=== PATIENT | female | born 1940 | race Caucasian/White ===

== ENCOUNTER 2018-10-19 13:05 | Outpatient (CLI) | payer MEDICARE, BC ==
--- NOTE | 2018-10-19 14:15 | RAD ---
2 VIEWS CHEST: Date: 10/19/18 COMPARISON: None. HISTORY: Dyspnea. FINDINGS: Two views of the chest show a normal sized cardiomediastinal silhouette. The patient is status post C ABG. There is no evidence of consolidation, mass, or pleural effusion. IMPRESSION: No evidence of acute cardiopulmonary disease. POS: [facility]
== END 2018-10-19 13:06 | disposition home or self-care (01) ==
LOC: RAD 13:05
PROVIDERS: ATTEND Internal Medicine
DX: R06.00 Dyspnea, unspecified (principal)
CPT/HCPCS: 71046

== ENCOUNTER 2018-11-06 19:30 | Outpatient (CLI) | payer MEDICARE, BC | END 2018-11-06 19:31 | disposition home or self-care (01) | LOC: SLEEPLAB 19:30 | PROVIDERS: ATTEND Internal Medicine | DX: G47.33 Obstructive sleep apnea (adult) (pediatric) (principal); R53.83 Other fatigue; R51 Headache; K21.9 Gastro-esophageal reflux disease without esophagitis; R35.1 Nocturia; R06.83 Snoring; G47.10 Hypersomnia, unspecified; G47.00 Insomnia, unspecified; E66.9 Obesity, unspecified; Z68.29 Body mass index [BMI] 29.0-29.9, adult | CPT/HCPCS: 95810 ==

== ENCOUNTER 2018-11-30 14:00 | Outpatient (CLI) | payer MEDICARE, BC | END 2018-11-30 14:01 | disposition home or self-care (01) | LOC: CP 14:00 | PROVIDERS: ATTEND Internal Medicine | DX: R06.00 Dyspnea, unspecified (principal) | CPT/HCPCS: 94060; 94727; 94729 ==

== ENCOUNTER 2019-03-09 08:32 | Outpatient (CLI) | payer MEDICARE, BC ==
--- NOTE | 2019-03-09 09:40 | RAD ---
EXAM: Chest 2 views: HISTORY: Preoperative radiograph COMPARISON: None. FINDINGS: There is a normal-sized cardiomediastinal silhouette. The patient is status post CABG. There is no evidence of consolidation, mass, or pleural effusion. The bones are unremarkable. IMPRESSION: No evidence of acute cardiopulmonary disease
[2019-03-09 10:24] LABS: #Basophils 0.1 thou/uL (0.0-0.2); #Eosinphils 0.2 thou/uL (0.0-0.7); #Monocytes 0.6 thou/uL (0.11-0.59); #Neutrophils 5.8 thou/uL (1.40-6.50); %Eosinophils 2.1 % (0.0-10.0); %Lymphocytes 30.9 % (21.0-51.0); Hemoglobin 13.3 g/dL (12.0-16.0); Mean Corpuscular HGB CONC 31.7 g/dL (32.0-36.0); Mean Corpuscular Hemoglobin 30.8 pg (27.0-31.0); Mean Corpuscular Volume 97.2 fL (78.0-98.0); Mean Platelet Volume 8.3 fL (7.4-10.4); Platelet Count 200 thou/uL (130-400); RBC Distribution Width 12.4 % (11.5-14.5); Red Blood Cell (RBC) Count 4.32 mill/uL (4.20-5.40); White Blood Cell (WBC) Count 9.7 thou/uL (4.8-10.8)
[2019-03-09 10:31] LABS: Bacteria/HPF None Seen HPF (None Seen); Bilirubin Negative (Negative); Blood, Urine Negative (Negative); Clarity Clear (Clear); Glucose, Urine (Dipstick) Normal (Negative); Leukocyte Negative Leu/uL (Negative); Nitrite Negative (Negative); Protein, Urine (Dipstick) Negative (Neg-Trace); RBC/HPF 0-3 HPF (0-3); Squamous Epithelial 0-3 HPF (0-3); Urobilinogen Normal mg/dL (Less than 2); WBC/HPF 0-3 HPF (0-3)
[2019-03-09 10:47] LABS: Anion Gap 14 mmol/L (10-20); BUN (Urea Nitrogen) 42 mg/dL (9.8-20.1); Calc. Creatinine Clearance 0 mL/min (70-130); Calcium 10.3 mg/dL (7.8-10.44); Carbon Dioxide 25 mmol/L (23-31); Chloride 104 mmol/L (98-107); Estimated GFR-MDRD 52; Glucose 94 mg/dL (83-110); Potassium 4.5 mmol/L (3.5-5.1); Sodium 138 mmol/L (136-145)
== END 2019-03-09 08:33 | disposition home or self-care (01) ==
LOC: LABBT 08:32
PROVIDERS: ATTEND Orthopaedic Surgery
DX: Z01.818 Encounter for other preprocedural examination (principal); M17.11 Unilateral primary osteoarthritis, right knee
CPT/HCPCS: 71046; 80048; 81001; 85025; 85610; 87081; 93005; 93010

== ENCOUNTER 2019-03-27 06:58 | Inpatient (IN) | payer MEDICARE, BC ==
[2019-03-27] MEDS ORDERED: Tranexamic Acid 1,000 MG/10 ML VIAL ONE ×2 (07:28→12:59)
[2019-03-27] MEDS ORDERED: ceFAZolin Sodium (SDC) 2 GM/100 ML BAG ONE (07:28)
[2019-03-27] MEDS ORDERED: Sodium Chloride 0.9% 100 ML ONE (07:28)
[2019-03-27] MEDS ORDERED: Vancomycin HCl 1.5 GM in Sodium Chloride 0.9% 250 ML 300 ML IVPB SCH ×2 (07:45→21:00)
[2019-03-27] MEDS ORDERED: Fentanyl 100 MCG/2 ML VIAL ONE ×4 (07:55→11:51)
[2019-03-27] MEDS ORDERED: Midazolam HCl 2 mg/2 ml Vial ONE (07:55)
[2019-03-27] MEDS ORDERED: Promethazine HCl 25 MG/ML VIAL SLOW IVP PRN (08:24)
[2019-03-27] MEDS ORDERED: Ondansetron HCl/PF 4 MG/2 ML Vial IVP PRN (08:24)
[2019-03-27] MEDS ORDERED: Promethazine HCl 25 MG/ML VIAL IM PRN ×3 (08:24→10:03)
[2019-03-27] MEDS ORDERED: HYDROcodone/Acetaminophen 10/325 mg Tablet PO PRN (08:39)
[2019-03-27] MEDS ORDERED: Fentanyl 100 MCG/2 ML VIAL SLOW IVP PRN (08:39)
[2019-03-27] MEDS ORDERED: Zolpidem Tartrate 5 MG TAB PO PRN ×2 (08:39→10:03)
[2019-03-27] MEDS ORDERED: traMADol HCl 50 MG TAB PO PRN ×2 (08:39)
[2019-03-27] MEDS ORDERED: Ropivacaine HCl/PF 250 ML in Premix Bag 1 BAG NERVE BLCK SCH (08:39)
[2019-03-27] MEDS ORDERED: Ondansetron PF 4 MG/2 ML Vial IVP PRN ×2 (08:39→10:03)
[2019-03-27] MEDS ORDERED: Bupivacaine PF 0.5% 30 ML VIAL ONE (09:27)
[2019-03-27] MEDS ORDERED: diphenhydrAMINE 25 MG CAP PO PRN (10:03)
[2019-03-27] MEDS ORDERED: Acetaminophen 325 MG TAB PO PRN (10:03)
[2019-03-27] MEDS ORDERED: Tranexamic Acid 1,000 MG in Sodium Chloride 0.9% 100 ML IVPB SCH (10:15)
[2019-03-27] MEDS ORDERED: Ketorolac Tromethamine 30 MG/ML VIAL IVP SCH (12:00)
[2019-03-27] MEDS ORDERED: Promethazine HCl 25 MG/ML VIAL ONE (13:08)
--- NOTE | 2019-03-27 13:09 | OP ---
DATE OF PROCEDURE: 03/27/2019 INFECTION CONTROL NURSE: Devante Collins PA-C PREOPERATIVE DIAGNOSIS: Right knee arthritis. POSTOPERATIVE DIAGNOSIS: Right knee arthritis. PROCEDURE PERFORMED: Right total knee arthroplasty using Zac pinless navigation. ESTIMATED BLOOD LOSS: Minimal. COMPLICATIONS: None. ANESTHESIA: She had general anesthetic. She also had a preoperative block. IMPLANTS: To the right knee, [employer] Triathlon total knee system, the femur was a size 3 cruciate-retaining femur. We used a size 3 primary tibial baseplate. We used a 3 x 9 mm X3 CS tibial bearing, and we used a 27 x 8 symmetric X3 patella. DISPOSITION: She went to recovery room in stable condition. INDICATIONS: This is a 78-year-old very active female, who has tried nonoperative treatment for knee arthritis and unfortunately has failed at this point. At this time, she wished to have her knee replaced. PROCEDURE IN DETAIL: After all appropriate consent forms were explained and signed, the patient was taken back to the operating room and at this time was given general anesthetic. Once the level of anesthesia was appropriate, a well-padded tourniquet was placed on the right leg, and the leg was then prepped and draped in standard surgical fashion. The limb was exsanguinated and tourniquet taken up to 300 mmHg. Midline incision was made with a 10 blade down through the skin and subcutaneous tissue. Bovie electrocautery was used to coagulate any brisk venous bleeding. A new blade was used to make a medial parapatellar arthrotomy. Small subperiosteal release was performed medially and excess fat pad was removed. The knee was flexed up to gain access to the femur. The femur was navigated and distal femoral resection was made. Epicondylar access was used to align our sizing jig and this was pinned in place. We sized our femur to be a size 3 cruciate-retaining femur. 4:1 cutting block was applied and pinned. Anterior and posterior chamfer cuts were then made. We navigated out our proximal tibia and made our proximal tibial resection. Spreaders were used to remove any posterior osteophytes off the back of the femur as well as remaining meniscal tissue. A long alignment jeremie was then used to achieve correct rotation of our tibial baseplate and a size 3 primary tibial baseplate was chosen. This was pinned in place. We trialed the polyethylene and a 3 x 9 mm X3 CS tibial bearing polyethylene gave us full extension and good stability throughout range of motion. Two towel clips and a saw were used to cut our patella. Three lug nuts were drilled and we used a 27 x 8 symmetric X3 patella was trialed which sat nicely in the trochlear groove. We then drilled our femur and punched our tibia. All components were removed. The knee was thoroughly irrigated and dried. Cement was mixed into the cement gun on the back table. Components were then placed. The knee was held out in full extension until the cement had dried. All excess bone cement was removed. Multiple #2 Vicryl stitches as well as a Quill were used to close our extensor mechanism. 0 Quill followed by a running Monoderm was then used to close the skin. Surgicel glue was then used on the skin. Once this had dried, soft tissue dressing was applied to the limb, tourniquet was let down , and the toes pinked up nicely. The patient was then awakened and taken to the recovery room in stable condition. All counts were correct at the end of the case. The patient did receive preoperative IV antibiotics. The patient was injected with Marcaine for postoperative pain relief. Job ID: [id number] [facility]
[2019-03-27] MEDS: Sodium Chloride 0.9% 1,000 ML IV SCH ×3 (13:47→21:14)
[2019-03-27 16:08] VITALS: BMI 28.4
[2019-03-27] MEDS: Ketorolac Tromethamine 30 MG/ML VIAL IVP SCH ×2 (16:30→21:25)
[2019-03-27] MEDS: HYDROcodone/Acetaminophen 10/325 mg Tablet PO PRN (17:31)
[2019-03-27] MEDS: CEFAZOLIN 2 GM, Admixture Fee 1 EACH in Sodium Chloride 0.9% 100 ML IVPB SCH (17:33)
--- NOTE | 2019-03-27 20:26 | CON ---
DATE OF CONSULTATION: REASON FOR CONSULTATION: Medical management. HISTORY OF PRESENT ILLNESS: Ms. Padilla is a 78-year-old woman, who has a history of hypertension and hyperlipidemia as well as coronary artery disease, status post CABG several years ago, who is status post right total knee arthroplasty done earlier today. The patient states she is feeling very well and has just finished mobilizing with the help of physical therapy. She has mild discomfort in her legs due to getting back into bed and states her pain is a 6/10 in severity, but once not moving, easily has settled. The patient states she feels very good otherwise. Denies having any complaints. She is very eager to the eat dinner because she is hungry. Denies having any nausea or vomiting. Denies any abdominal pain. Moving her bowels as normal and denies having any urinary symptoms. No fevers, chills, or sweats. No chest pain, palpitations, or shortness of breath. All other review of systems are negative. PAST MEDICAL HISTORY: 1. Hypertension. 2. Hyperlipidemia. 3. Coronary artery disease. 4. Previous CABG. 5. Arthritis. 6. GERD. PAST SURGICAL HISTORY: 1. CABG. 2. Status post right total knee arthroplasty. SOCIAL HISTORY: The patient denies any tobacco use, alcohol consumption, or illicit drug use. PHYSICAL EXAMINATION: GENERAL: The patient appears well developed, well nourished, is in no acute distress. VITAL SIGNS: Temperature 97.3, pulse 79, respirations 16, O2 saturation 98% on room air, blood pressure 144/77. HEENT: Normocephalic, atraumatic. Pupils are equal, round, and reactive to light. Sclerae without icterus. Oropharynx is clear. NECK: Supple. LUNGS: Clear to auscultation bilaterally. CARDIAC: Regular rate and rhythm without audible murmurs, rubs, or gallops. ABDOMEN: Soft, nontender, nondistended. Normoactive bowel sounds present. EXTREMITIES: Right knee notable for swelling with bandage in place associated with recent procedure and no erythema. NEUROLOGIC: Alert and oriented x3. SKIN: Without rash or jaundice. LABORATORY DATA: No laboratory data. IMPRESSION AND PLAN: Ms. Padilla is a very pleasant 78-year-old woman, who is status post right knee arthroplasty as mentioned above, which was done earlier today. The patient has a history of hypertension, hyperlipidemia, and coronary artery disease as well as arthritis. The patient has been referred for medical management. She was placed on IV antibiotics with cefazolin by Dr. Blanton. The patient is doing well at this present time without any significant discomfort and does have analgesics ordered including fentanyl and hydrocodone as well as Toradol as options for pain. She was referred for management of the following. 1. Hypertension. Her home medications have been restarted already. Her blood pressure is slightly elevated at 144/77, however, she has not received her blood pressure medicines today. Continue to monitor blood pressure. We will add on laboratory studies to assess current kidney function, given the multiple medications she is on. Last laboratory studies on file were done March 09, 2019, and at that time, her BUN was elevated at 42 with a creatinine of 1.02 and a GFR of 52. 2. Coronary artery disease. Home medications restarted including atorvastatin and aspirin. 3. Gastrointestinal prophylaxis. We will start her on famotidine 20 mg IV b.i.d. She does have a history of gastroesophageal reflux disease, though she is asymptomatic at present. 4. The patient's case was discussed with Dr. Mariee, who agrees with the plan of care as described above. Job ID: [id number]
[2019-03-27 21:08] LABS: #Basophils 0.1 thou/uL (0.0-0.2); #Eosinphils 0.1 thou/uL (0.0-0.7); #Lymphocytes 1.6 thou/uL (1.20-3.40); #Monocytes 0.6 thou/uL (0.11-0.59); #Neutrophils 6.4 thou/uL (1.40-6.50); %Basophils 0.7 % (0.0-1.0); %Eosinophils 0.8 % (0.0-10.0); %Lymphocytes 18.7 % (21.0-51.0); %Monocytes 6.7 % (0.0-10.0); %Neutrophils 73.1 % (42.0-75.0); Hemoglobin 11.4 g/dL (12.0-16.0); Mean Corpuscular Hemoglobin 31.5 pg (27.0-31.0); Mean Corpuscular Volume 95.6 fL (78.0-98.0); Mean Platelet Volume 7.8 fL (7.4-10.4); Platelet Count 175 thou/uL (130-400); RBC Distribution Width 12.7 % (11.5-14.5); White Blood Cell (WBC) Count 8.8 thou/uL (4.8-10.8)
[2019-03-27] MEDS: Aspirin 81 mg Enteric Coated Tablet PO SCH (21:27)
[2019-03-27] MEDS: Atorvastatin Calcium 40 MG TAB PO SCH (21:27)
[2019-03-27 21:30] LABS: Anion Gap 10 mmol/L (10-20); BUN (Urea Nitrogen) 34 mg/dL (9.8-20.1); Calc. Creatinine Clearance 61 mL/min (70-130); Calcium 9.1 mg/dL (7.8-10.44); Carbon Dioxide 25 mmol/L (23-31); Chloride 109 mmol/L (98-107); Estimated GFR-MDRD 56; Glucose 122 mg/dL (83-110); Potassium 4.2 mmol/L (3.5-5.1); Sodium 140 mmol/L (136-145)
[2019-03-28] MEDS: CEFAZOLIN 2 GM, Admixture Fee 1 EACH in Sodium Chloride 0.9% 100 ML IVPB SCH (00:51)
[2019-03-28] MEDS: Ketorolac Tromethamine 30 MG/ML VIAL IVP SCH ×4 (05:00→21:22)
[2019-03-28] MEDS: Sodium Chloride 0.9% 1,000 ML IV SCH ×2 (05:16→17:28)
[2019-03-28 07:15] LABS: Hemoglobin 11.1 g/dL (12.0-16.0); Mean Corpuscular HGB CONC 32.9 g/dL (32.0-36.0); Mean Corpuscular Hemoglobin 31.7 pg (27.0-31.0); Mean Corpuscular Volume 96.5 fL (78.0-98.0); Mean Platelet Volume 7.6 fL (7.4-10.4); Platelet Count 157 thou/uL (130-400); RBC Distribution Width 12.8 % (11.5-14.5); Red Blood Cell (RBC) Count 3.49 mill/uL (4.20-5.40); White Blood Cell (WBC) Count 7.3 thou/uL (4.8-10.8)
[2019-03-28 07:20] LABS: #Eosinphils 0.2 thou/uL (0.0-0.7); #Lymphocytes 1.4 thou/uL (1.20-3.40); #Monocytes 0.6 thou/uL (0.11-0.59); #Neutrophils 4.9 thou/uL (1.40-6.50); %Basophils 0.3 % (0.0-1.0); %Eosinophils 2.8 % (0.0-10.0); %Lymphocytes 19.3 % (21.0-51.0); %Monocytes 8.3 % (0.0-10.0); %Neutrophils 69.4 % (42.0-75.0); Mean Corpuscular HGB CONC 33.2 g/dL (32.0-36.0); Mean Corpuscular Volume 96.6 fL (78.0-98.0); Mean Platelet Volume 7.9 fL (7.4-10.4); Platelet Count 161 thou/uL (130-400); RBC Distribution Width 12.7 % (11.5-14.5); Red Blood Cell (RBC) Count 3.44 mill/uL (4.20-5.40); White Blood Cell (WBC) Count 7.1 thou/uL (4.8-10.8)
[2019-03-28 07:38] LABS: Anion Gap 10 mmol/L (10-20); BUN (Urea Nitrogen) 30 mg/dL (9.8-20.1); Calc. Creatinine Clearance 66 mL/min (70-130); Calcium 9.3 mg/dL (7.8-10.44); Carbon Dioxide 23 mmol/L (23-31); Chloride 109 mmol/L (98-107); Estimated GFR-MDRD 62; Glucose 92 mg/dL (83-110); Potassium 4.3 mmol/L (3.5-5.1); Sodium 138 mmol/L (136-145)
[2019-03-28] MEDS ORDERED: Non-Formulary Item 1 EACH (Potassium [Potassium] 99 MG) PO SCH (09:00)
[2019-03-28] MEDS ORDERED: Non-Formulary Item 1 EACH (Multivitamin [Multi-Vitamin Daily] 1 TABLET) PO SCH (09:00)
[2019-03-28] MEDS: Calcium Carbonate + Vit D 1 TAB PO SCH (09:02)
[2019-03-28] MEDS: Aspirin 81 mg Enteric Coated Tablet PO SCH ×2 (09:02→21:21)
[2019-03-28] MEDS: Magnesium Oxide 250 MG TAB PO SCH (09:02)
[2019-03-28] MEDS: Multivitamin W/ Minerals 1 TAB PO SCH (09:03)
[2019-03-28] MEDS: Senokot S 8.6-50 MG TAB PO SCH ×2 (09:03→21:21)
[2019-03-28] MEDS: Amlodipine 5 MG TAB PO SCH (09:03)
[2019-03-28] MEDS: Ferrous Gluconate 324 MG TAB PO SCH ×2 (09:03→17:29)
[2019-03-28] MEDS: Losartan 25 MG TAB PO SCH (09:04)
--- NOTE | 2019-03-28 17:37 | PDOC.HOSPP ---
- Subjective Encounter Date: 03/28/19 Encounter Time: 08:20 Subjective: Pt seen for followup re: hypertension. No complaints today. - Objective Vital Signs & Weight: Vital Signs (12 hours) Temp Pulse Resp BP BP Pulse Ox 03/28/19 15:48 97.7 F 83 16 134/72 98 03/28/19 09:03 72 138/60 03/28/19 08:00 94 L 03/28/19 07:48 98.2 F 72 16 138/60 94 L Weight Admit Weight 176 lb Weight 176 lb I&O: 03/27/19 03/28/19 03/29/19 06:59 06:59 06:59 Intake Total 1601.0 1800 Output Total 250 600 Balance 1351.0 1200 Result Diagrams: 03/28/19 06:58 03/28/19 06:58 Additional Labs: Labs and MARs reviewed by me ROS - Review of Systems Cardiovascular: denies: chest pain, palpitations, orthopnea, paroxysmal noc. dyspnea, edema, light headedness Gastrointestinal: denies: nausea, vomitting, abdominal pain, diarrhea, constipation, melena, hematochezia - Medication Medications: Active Medications Generic Name Dose Route Start Last Admin Trade Name Freq PRN Reason Stop Dose Admin Hydrocodone Bitart/Acetaminophen 1 tab 03/27/19 08:39 03/27/19 17:31 [place] 10/325 PO 1 tab Q4H PRN Administration Pain (1-3) Hydrocodone Bitart/Acetaminophen 2 tab 03/27/19 08:39 03/28/19 09:11 [place] 10/325 PO 2 tab Q4H PRN Administration PAIN (4-6) Amlodipine Besylate 5 mg 03/28/19 09:00 03/28/19 09:03 Norvasc PO 5 mg QAM ROMA Administration Aspirin 81 mg 03/27/19 21:00 03/28/19 09:02 Ecotrin PO 81 mg BID ROMA Administration Atorvastatin Calcium 40 mg 03/27/19 21:00 03/27/19 21:27 Lipitor PO 40 mg HS ROMA Administration Calcium/Vitamin D 1 tab 03/28/19 09:00 03/28/19 09:02 Caltrate 600 + Vit D PO 1 tab DAILY ROMA Administration Ferrous Gluconate 324 mg 03/28/19 08:00 03/28/19 17:29 Fergon PO 324 mg BID-WM ROMA Administration Ropivacaine 250 ml/ Device 250 mls @ 10 mls/hr 03/27/19 08:39 03/28/19 09:01 NERVE BLCK 250 mls INF ROMA Administration Sodium Chloride 1,000 mls @ 100 mls/hr 03/27/19 10:15 03/28/19 17:28 Normal Saline 0.9% IV Not Given .Q10H ROMA Iron/Minerals/Multivitamins 1 tab 03/28/19 09:00 03/28/19 09:03 Theragran M PO 1 tab DAILY ROMA Administration Ketorolac Tromethamine 15 mg 03/27/19 16:00 03/28/19 16:42 Toradol IVP 03/29/19 10:01 15 mg 0400,1000,1600,2200 ROMA Administration Losartan Potassium 25 mg 03/28/19 09:00 03/28/19 09:04 Cozaar PO 25 mg QAM ROMA Administration Magnesium Oxide 250 mg 03/28/19 09:00 03/28/19 09:02 Magnesium Oxide PO 250 mg DAILY ROMA Administration Pantoprazole Sodium 40 mg 03/28/19 09:00 03/28/19 09:02 Protonix PO 40 mg QAM ROMA Administration Senna/Docusate Sodium 2 tab 03/28/19 09:00 03/28/19 09:03 Senokot S PO 2 tab BID ROMA Administration - Exam NAD Eye: anicteric sclera ENT: normocephalic atraumatic, moist mucosa Neck: supple, no JVD Heart: RRR Respiratory: CTAB Gastrointestinal: soft, non-tender Skin: normal turgor Musculoskeletal: no muscle wasting Musculoskeletal - other findings: s/p right knee surgery Psychiatric: normal affect, normal behavior Hosp A/P (1) HTN (hypertension) Code(s): I10 - ESSENTIAL (PRIMARY) HYPERTENSION Status: Chronic (2) Dyslipidemia Code(s): E78.5 - HYPERLIPIDEMIA, UNSPECIFIED Status: Chronic (3) CAD (coronary artery disease) Code(s): I25.10 - ATHSCL HEART DISEASE OF [place] CORONARY ARTERY W/O ANG PCTRS Status: Chronic (4) GERD (gastroesophageal reflux disease) Code(s): K21.9 - GASTRO-ESOPHAGEAL REFLUX DISEASE WITHOUT ESOPHAGITIS Status: Chronic - Plan plan discussed w/ family, PT/OT, out of bed/ambulate BP controlled, continue Cozaar. CAD and GERD stable. Continue atorvastatin.
[2019-03-28] MEDS: Atorvastatin Calcium 40 MG TAB PO SCH (21:29)
[2019-03-29] MEDS: Sodium Chloride 0.9% 1,000 ML IV SCH ×2 (02:04→15:32)
[2019-03-29] MEDS: Ketorolac Tromethamine 30 MG/ML VIAL IVP SCH ×2 (05:00→10:19)
[2019-03-29 05:36] LABS: Hemoglobin 10.7 g/dL (12.0-16.0); Mean Corpuscular HGB CONC 32.2 g/dL (32.0-36.0); Mean Corpuscular Volume 96.3 fL (78.0-98.0); Mean Platelet Volume 8.3 fL (7.4-10.4); Platelet Count 159 thou/uL (130-400); RBC Distribution Width 12.8 % (11.5-14.5); Red Blood Cell (RBC) Count 3.46 mill/uL (4.20-5.40); White Blood Cell (WBC) Count 9.1 thou/uL (4.8-10.8)
[2019-03-29] MEDS: Calcium Carbonate + Vit D 1 TAB PO SCH (08:24)
[2019-03-29] MEDS: Losartan 25 MG TAB PO SCH (08:24)
[2019-03-29] MEDS: Amlodipine 5 MG TAB PO SCH (08:24)
[2019-03-29] MEDS: Senokot S 8.6-50 MG TAB PO SCH ×2 (08:24→19:20)
[2019-03-29] MEDS: Ferrous Gluconate 324 MG TAB PO SCH ×2 (08:24→18:40)
[2019-03-29] MEDS: Magnesium Oxide 250 MG TAB PO SCH (08:24)
[2019-03-29] MEDS: Aspirin 81 mg Enteric Coated Tablet PO SCH ×2 (08:25→19:20)
[2019-03-29] MEDS: Multivitamin W/ Minerals 1 TAB PO SCH (08:25)
[2019-03-29] MEDS: HYDROcodone/Acetaminophen 10/325 mg Tablet PO PRN ×2 (08:33→19:19)
--- NOTE | 2019-03-29 15:20 | PDOC.HOSPP ---
- Subjective Encounter Date: 03/29/19 Encounter Time: 08:40 Subjective: Pt seen for followup re: hypertension. Feels well, no complaints. - Objective Vital Signs & Weight: Vital Signs (12 hours) Temp Pulse Resp BP BP Pulse Ox 03/29/19 15:00 98.1 F 91 17 140/66 98 03/29/19 11:35 97.9 F 71 16 126/74 96 03/29/19 08:24 78 133/77 03/29/19 08:00 96 03/29/19 07:48 98.4 F 78 16 133/77 96 03/29/19 04:28 97.8 F 84 17 115/71 99 Weight Admit Weight 176 lb Weight 176 lb I&O: 03/28/19 03/29/19 03/30/19 06:59 06:59 06:59 Intake Total 1601.0 2661.0 Output Total 250 5300 Balance 1351.0 -2639.0 Result Diagrams: 03/29/19 04:31 03/28/19 06:58 Additional Labs: labs and MARs reviewed by me FARRAR - Review of Systems Cardiovascular: denies: chest pain, palpitations, orthopnea, paroxysmal noc. dyspnea, edema, light headedness Gastrointestinal: denies: nausea, vomitting, abdominal pain, diarrhea, constipation, melena, hematochezia - Medication Medications: Active Medications Generic Name Dose Route Start Last Admin Trade Name Freq PRN Reason Stop Dose Admin Hydrocodone Bitart/Acetaminophen 1 tab 03/27/19 08:39 03/29/19 08:33 [place] 10/325 PO 1 tab Q4H PRN Administration Pain (1-3) Hydrocodone Bitart/Acetaminophen 2 tab 03/27/19 08:39 03/28/19 09:11 [place] 10/325 PO 2 tab Q4H PRN Administration PAIN (4-6) Amlodipine Besylate 5 mg 03/28/19 09:00 03/29/19 08:24 Norvasc PO 5 mg QAM ROMA Administration Aspirin 81 mg 03/27/19 21:00 03/29/19 08:25 Ecotrin PO 81 mg BID ROMA Administration Atorvastatin Calcium 40 mg 03/27/19 21:00 03/28/19 21:29 Lipitor PO 40 mg HS ROMA Administration Calcium/Vitamin D 1 tab 03/28/19 09:00 03/29/19 08:24 Caltrate 600 + Vit D PO 1 tab DAILY ROMA Administration Ferrous Gluconate 324 mg 03/28/19 08:00 03/29/19 08:24 Fergon PO 324 mg BID-WM ROMA Administration Ropivacaine 250 ml/ Device 250 mls @ 10 mls/hr 03/27/19 08:39 03/28/19 09:01 NERVE BLCK 250 mls INF ROMA Administration Sodium Chloride 1,000 mls @ 100 mls/hr 03/27/19 10:15 03/29/19 02:04 Normal Saline 0.9% IV Not Given .Q10H ROMA Iron/Minerals/Multivitamins 1 tab 03/28/19 09:00 03/29/19 08:25 Theragran M PO 1 tab DAILY ROMA Administration Losartan Potassium 25 mg 03/28/19 09:00 03/29/19 08:24 Cozaar PO 25 mg QAM ROMA Administration Magnesium Oxide 250 mg 03/28/19 09:00 03/29/19 08:24 Magnesium Oxide PO 250 mg DAILY ROMA Administration Pantoprazole Sodium 40 mg 03/28/19 09:00 03/29/19 08:24 Protonix PO 40 mg QAM ROMA Administration Senna/Docusate Sodium 2 tab 03/28/19 09:00 03/29/19 08:24 Senokot S PO 2 tab BID ROMA Administration Sodium Chloride 10 ml 03/27/19 10:03 03/29/19 05:00 Flush - Normal Saline IVF 10 ml PRN PRN Administration Saline Flush - Exam NAD Eye: anicteric sclera ENT: normocephalic atraumatic Neck: supple Heart: RRR Respiratory: CTAB Gastrointestinal: soft Extremities: no cyanosis Extremeties - other findings: s/p l knee surgery Psychiatric: normal affect, normal behavior Hosp A/P (1) HTN (hypertension) Code(s): I10 - ESSENTIAL (PRIMARY) HYPERTENSION Status: Chronic (2) Dyslipidemia Code(s): E78.5 - HYPERLIPIDEMIA, UNSPECIFIED Status: Chronic (3) CAD (coronary artery disease) Code(s): I25.10 - ATHSCL HEART DISEASE OF [place] CORONARY ARTERY W/O ANG PCTRS Status: Chronic (4) GERD (gastroesophageal reflux disease) Code(s): K21.9 - GASTRO-ESOPHAGEAL REFLUX DISEASE WITHOUT ESOPHAGITIS Status: Chronic - Plan PT/OT, out of bed/ambulate BP controlled, on Cozaar. CAD stable. GERD stable. Continue atorvastatin for dyslipidemia.
[2019-03-29] MEDS: Atorvastatin Calcium 40 MG TAB PO SCH (19:19)
[2019-03-30] MEDS: Sodium Chloride 0.9% 1,000 ML IV SCH ×2 (00:37→08:41)
[2019-03-30 04:18] LABS: Hemoglobin 11.5 g/dL (12.0-16.0); Mean Corpuscular HGB CONC 33.1 g/dL (32.0-36.0); Mean Corpuscular Hemoglobin 31.8 pg (27.0-31.0); Mean Corpuscular Volume 96.1 fL (78.0-98.0); Platelet Count 167 thou/uL (130-400); RBC Distribution Width 12.8 % (11.5-14.5); Red Blood Cell (RBC) Count 3.61 mill/uL (4.20-5.40); White Blood Cell (WBC) Count 8.9 thou/uL (4.8-10.8)
[2019-03-30] MEDS ORDERED: Docusate 100 MG CAP PO PRN (08:00)
[2019-03-30] MEDS: Ferrous Gluconate 324 MG TAB PO SCH (08:37)
[2019-03-30] MEDS: Calcium Carbonate + Vit D 1 TAB PO SCH (08:38)
[2019-03-30] MEDS: Magnesium Oxide 250 MG TAB PO SCH (08:38)
[2019-03-30] MEDS: Losartan 25 MG TAB PO SCH (08:38)
[2019-03-30] MEDS: Multivitamin W/ Minerals 1 TAB PO SCH (08:38)
[2019-03-30] MEDS: Senokot S 8.6-50 MG TAB PO SCH (08:38)
[2019-03-30] MEDS: Aspirin 81 mg Enteric Coated Tablet PO SCH (08:39)
[2019-03-30] MEDS: Amlodipine 5 MG TAB PO SCH (08:39)
[2019-03-30] MEDS ORDERED: Bisacodyl 10 MG SUPP PR PRN (09:28)
[2019-03-30] MEDS ORDERED: Ondansetron ODT 4 MG TAB PO PRN (10:58)
[2019-03-30 12:43] VITALS: BP 148/73; TEMP 98.7
== END 2019-03-30 15:18 | DRG 470 ==
LOC: SDC 06:58 → SJJU 10:03
PROVIDERS: ADMIT Orthopaedic Surgery; ATTEND Orthopaedic Surgery
PROC: 0SRC0J9 Replacement of Right Knee Joint with Synthetic Substitute, Cemented, Open Approach (ICD-10-PCS; principal; 2019-03-27)
DX: M17.11 Unilateral primary osteoarthritis, right knee (principal); I10 Essential (primary) hypertension; E78.5 Hyperlipidemia, unspecified; I25.10 Atherosclerotic heart disease of native coronary artery without angina pectoris; I34.0 Nonrheumatic mitral (valve) insufficiency; K21.9 Gastro-esophageal reflux disease without esophagitis; Z95.1 Presence of aortocoronary bypass graft; Z79.899 Other long term (current) drug therapy
CPT/HCPCS: 36415; 80048; 85025; 85027; C1713; C1776; J0690; J1885; J2250; J2550; J2795; J3010; J3370; J3490; J7050; Q0162; S0020

== ENCOUNTER 2020-06-13 08:34 | Outpatient (CLI) | payer MEDICARE, BC ==
--- NOTE | 2020-06-13 08:47 | RAD ---
EXAM: Chest PA and lateral: HISTORY: Dyspnea. COMPARISON: 03/09/2019, 11/08/2019 FINDINGS: There are vascular rings and sternotomy wires. Heart: Normal cardiac silhouette Aorta: Unremarkable Pulmonary vessels: Normal Costophrenic angles: Costophrenic angles are clear. Lungs: No masses or consolidation. Chronic lung parenchymal changes. Pneumothorax: No pneumothorax Osseous structures: Previous right rotator cuff repair. IMPRESSION: No acute cardiopulmonary process.
== END 2020-06-13 08:35 | disposition home or self-care (01) ==
LOC: BICRAD 08:34
PROVIDERS: ATTEND Internal Medicine Critical Care Medicine
DX: R06.00 Dyspnea, unspecified (principal)
CPT/HCPCS: 71046

== ENCOUNTER 2020-07-05 08:37 | Outpatient (CLI) | payer MEDICARE, BC ==
--- NOTE | 2020-07-05 09:08 | RAD ---
EXAM: Lumbar spine 4 views including standing flexion and extension views HISTORY: Spondylolisthesis pain COMPARISON: 06/29/2016 FINDINGS: No evidence for acute fracture or dislocation or significant acute process. Dextroscoliosis of the lower lumbar spine and levoscoliosis of the upper lumbar lower thoracic spine. Stable anterolisthesis of L3 on L4 and L4-L5, grade 1 Multilevel disc osteophytosis and facet arthrosis. No evidence for a focal bone lesion. IMPRESSION: Stable appearing scoliosis with anterolisthesis of L3 on L4 L4 on L5 without abnormal translation bet ween flexion and extension.
--- NOTE | 2020-07-05 09:13 | RAD ---
EXAM: 2 views of the bilateral hips HISTORY: Bilateral hip pain COMPARISON: None FINDINGS: 2 views of the bilateral hips shows no evidence of acute fracture or dislocation. Mild join t space during seen in the right hip. Moderate to severe joint space narrowing is seen in the left hip. Subchondral cystic changes seen bilaterally. Surgical clips are seen in the left inguinal region . IMPRESSION: Bilateral hip osteoarthritis
== END 2020-07-05 08:38 | disposition home or self-care (01) ==
LOC: BICRAD 08:37
PROVIDERS: ATTEND Specialist
DX: M43.17 Spondylolisthesis, lumbosacral region (principal); M25.551 Pain in right hip; M25.552 Pain in left hip; M16.0 Bilateral primary osteoarthritis of hip; M41.9 Scoliosis, unspecified; M43.16 Spondylolisthesis, lumbar region
CPT/HCPCS: 72110; 73522

== ENCOUNTER 2021-12-10 13:15 | Outpatient (CLI) | payer MEDICARE, BC ==
[2021-12-11 12:17] LABS: SARS-CoV-2 PCR by NAA Not Detected (NotDetected)
== END 2021-12-10 13:16 | disposition home or self-care (01) ==
LOC: LABBT 13:15
PROVIDERS: ATTEND Surgery
DX: Z01.818 Encounter for other preprocedural examination (principal); R93.5 Abnormal findings on diagnostic imaging of other abdominal regions, including retroperitoneum; R94.5 Abnormal results of liver function studies; Z20.822 Contact with and (suspected) exposure to COVID-19
CPT/HCPCS: 93005; U0003; U0005; 93010

== ENCOUNTER 2021-12-15 09:15 | Day surgery (SDC) | payer MEDICARE, BC ==
[2021-12-11 12:25] VITALS: BMI 23.2
[2021-12-15] MEDS ORDERED: Lidocaine 1% w/Epinephrine 1:100K 20 ML VIAL ONE (10:56)
[2021-12-15] MEDS ORDERED: Bupivacaine 0.25% 10 ML VIAL ONE (10:56)
[2021-12-15] MEDS ORDERED: PROPOFOL 20 ML ONE (10:59)
[2021-12-15] MEDS ORDERED: ceFAZolin (BATCH) 2 GM/100 ML BAG ONE (11:03)
[2021-12-15] MEDS ORDERED: Lidocaine 1% PF 5 ML VIAL ONE (11:26)
[2021-12-15] MEDS ORDERED: PROPOFOL 200 MG/20 ML VIAL ONE (11:26)
== END 2021-12-15 13:00 | disposition home or self-care (01) ==
LOC: SDC 09:15
PROVIDERS: ATTEND Surgery
PROC: 0JH63WZ Insertion of Totally Implantable Vascular Access Device into Chest Subcutaneous Tissue and Fascia, Percutaneous Approach (ICD-10-PCS; principal; 2021-12-15)
PROC: 02HV33Z Insertion of Infusion Device into Superior Vena Cava, Percutaneous Approach (ICD-10-PCS; 2021-12-15)
DX: C25.9 Malignant neoplasm of pancreas, unspecified (principal); I10 Essential (primary) hypertension; K21.9 Gastro-esophageal reflux disease without esophagitis; I25.10 Atherosclerotic heart disease of native coronary artery without angina pectoris; M19.90 Unspecified osteoarthritis, unspecified site; E78.5 Hyperlipidemia, unspecified; Z79.01 Long term (current) use of anticoagulants; Z79.82 Long term (current) use of aspirin; Z79.84 Long term (current) use of oral hypoglycemic drugs; Z79.899 Other long term (current) drug therapy; Z88.5 Allergy status to narcotic agent; Z88.8 Allergy status to other drugs, medicaments and biological substances; Z95.1 Presence of aortocoronary bypass graft
CPT/HCPCS: 71045; C1788; J0690; J1642; J2704; S0020

== ENCOUNTER 2022-01-06 17:40 | Inpatient (IN) | payer MEDICARE, BC ==
[2022-01-06] MEDS ORDERED: hydrALAZINE 20 MG/ML VIAL SLOW IVP PRN (19:20)
[2022-01-06 19:21] VITALS: BMI 22.9
[2022-01-06] MEDS ORDERED: Dextrose 50% Abboject 50 ML SYRINGE SLOW IVP PRN (22:52)
[2022-01-06] MEDS ORDERED: Dextrose 5% in Water 1,000 ML IV PRN (22:52)
[2022-01-06] MEDS ORDERED: Ondansetron ODT 4 MG TAB PO PRN (22:52)
[2022-01-06] MEDS ORDERED: Acetaminophen 650 MG Suppository PR PRN (22:52)
[2022-01-06] MEDS ORDERED: HumaLOG 300 UNITS/3 ML VIAL SC PRN ×2 (22:52)
[2022-01-06] MEDS ORDERED: Sodium Chloride 0.9% 1,000 ML IV SCH (23:00)
[2022-01-06] MEDS ORDERED: Piperacillin/Tazobactam 3.375 GM in Sodium Chloride 0.9% 100 ML IVPB SCH ×2 (23:15→23:30)
[2022-01-06] MEDS ORDERED: Cefepime 2 GM in Sodium Chloride 0.9% 100 ML IVPB SCH (23:59)
[2022-01-07] MEDS: Sodium Chloride 0.9% 1,000 ML IV SCH ×3 (00:05→20:41)
[2022-01-07] MEDS: traZODone HCl 50 MG TAB PO PRN ×2 (01:17→20:45)
[2022-01-07] MEDS: Piperacillin/Tazobactam 3.375 GM in Sodium Chloride 0.9% 100 ML IVPB SCH ×3 (04:29→20:41)
[2022-01-07 05:58] LABS: Anion Gap 10 mmol/L (10-20); BUN (Urea Nitrogen) 15 mg/dL (9.8-20.1); Calc. Creatinine Clearance 66 mL/min (70-130); Calcium 8.1 mg/dL (7.8-10.44); Carbon Dioxide 22 mmol/L (23-31); Chloride 107 mmol/L (98-107); Glucose 134 mg/dL (83-110); Potassium 3.7 mmol/L (3.5-5.1); Sodium 135 mmol/L (136-145)
[2022-01-07 07:40] LABS: Hemoglobin 9.3 g/dL (12.0-16.0); Mean Corpuscular HGB CONC 32.3 g/dL (32.0-36.0); Mean Corpuscular Hemoglobin 30.8 pg (27.0-31.0); Mean Corpuscular Volume 95.5 fL (78.0-98.0); Mean Platelet Volume 7.1 fL (7.4-10.4); Platelet Count 139 thou/uL (130-400); RBC Distribution Width 11.8 % (11.5-14.5); Red Blood Cell (RBC) Count 3.02 mill/uL (4.20-5.40); White Blood Cell (WBC) Count 1.5 thou/uL (4.8-10.8)
[2022-01-07 08:59] LABS: Band 6 % (5-11); Lymphocytes 56 % (21-51); MDiff Complete? YES; Monocytes 4 % (0-10); Neutrophil 34 % (42-75); Platelet Morphology Comment Appears Adequate; Polychromasia SLIGHT = 2-3 cells (100X) (0-2/hpf)
[2022-01-07] MEDS: Acetaminophen 325 MG TAB PO PRN (08:59)
[2022-01-07] MEDS: Aspirin 81 mg Enteric Coated Tablet PO SCH (09:00)
[2022-01-07] MEDS ORDERED: Apixaban 5 MG TAB PO SCH (09:00)
[2022-01-07] MEDS ORDERED: Vancomycin 1 GM in Premix Bag 1 BAG IVPB SCH (15:00)
[2022-01-07] MEDS: Ondansetron PF 4 MG/2 ML Vial IVP PRN (20:45)
[2022-01-07] MEDS: HYDROcodone/Acetaminophen 5/325 mg Tablet PO PRN (20:55)
[2022-01-08] MEDS: Piperacillin/Tazobactam 3.375 GM in Sodium Chloride 0.9% 100 ML IVPB SCH ×3 (03:55→20:28)
[2022-01-08 06:17] LABS: Band 3 % (5-11); Hemoglobin 9.3 g/dL (12.0-16.0); Lymphocytes 63 % (21-51); MDiff Complete? YES; Mean Corpuscular HGB CONC 32.2 g/dL (32.0-36.0); Mean Platelet Volume 6.7 fL (7.4-10.4); Monocytes 5 % (0-10); Neutrophil 29 % (42-75); Platelet Count 128 thou/uL (130-400); RBC Distribution Width 11.8 % (11.5-14.5); Red Blood Cell (RBC) Count 3.01 mill/uL (4.20-5.40); White Blood Cell (WBC) Count 2.1 thou/uL (4.8-10.8)
[2022-01-08 06:37] LABS: ALT (SGPT) 26 U/L (8-55); AST (SGOT) 27 U/L (5-34); Albumin 2.5 g/dL (3.4-4.8); Alkaline Phosphatase 76 U/L (40-110); Anion Gap 10 mmol/L (10-20); BUN (Urea Nitrogen) 10 mg/dL (9.8-20.1); Bilirubin, Total 0.4 mg/dL (0.2-1.2); Calc. Creatinine Clearance 64 mL/min (70-130); Calcium 8.5 mg/dL (7.8-10.44); Carbon Dioxide 23 mmol/L (23-31); Chloride 109 mmol/L (98-107); Globulin 2.5 g/dL (2.4-3.5); Glucose 108 mg/dL (83-110); Magnesium 1.5 mg/dL (1.6-2.6); Potassium 3.7 mmol/L (3.5-5.1); Sodium 138 mmol/L (136-145)
[2022-01-08] MEDS: Ondansetron PF 4 MG/2 ML Vial IVP PRN (08:53)
[2022-01-08] MEDS: Aspirin 81 mg Enteric Coated Tablet PO SCH (08:54)
[2022-01-08] MEDS ORDERED: Magnesium Sulfate 2 GM in Sodium Chloride 0.9% 100 ML IVPB SCH (09:00)
[2022-01-08] MEDS: Sodium Chloride 0.9% 1,000 ML IV SCH ×3 (12:11→22:21)
[2022-01-08] MEDS: Acetaminophen 325 MG TAB PO PRN (13:18)
[2022-01-08 14:35] LABS: Vancomycin, Trough 5.4 ug/mL
[2022-01-08] MEDS: Vancomycin HCl 750 MG in Sodium Chloride 0.9% 250 ML 250 ML IVPB SCH (17:07)
[2022-01-08] MEDS: HYDROcodone/Acetaminophen 5/325 mg Tablet PO PRN (20:28)
[2022-01-09] MEDS: Vancomycin HCl 750 MG in Sodium Chloride 0.9% 250 ML 250 ML IVPB SCH (02:38)
[2022-01-09] MEDS: Piperacillin/Tazobactam 3.375 GM in Sodium Chloride 0.9% 100 ML IVPB SCH (04:14)
[2022-01-09 05:17] LABS: Hemoglobin 8.9 g/dL (12.0-16.0); Mean Corpuscular HGB CONC 32.8 g/dL (32.0-36.0); Mean Corpuscular Hemoglobin 31.3 pg (27.0-31.0); Mean Corpuscular Volume 95.4 fL (78.0-98.0); Platelet Count 124 thou/uL (130-400); RBC Distribution Width 11.8 % (11.5-14.5); Red Blood Cell (RBC) Count 2.84 mill/uL (4.20-5.40); White Blood Cell (WBC) Count 2.7 thou/uL (4.8-10.8)
[2022-01-09 05:18] LABS: Band 1 % (5-11); Eosinophils 2 % (0-10); Lymphocytes 51 % (21-51); MDiff Complete? YES; Monocytes 7 % (0-10); Neutrophil 39 % (42-75); Platelet Morphology Comment Appears Decreased; RBC Morphology Normal
[2022-01-09 08:06] VITALS: BP 118/72; TEMP 99.5
[2022-01-09] MEDS: Acetaminophen 325 MG TAB PO PRN (08:10)
[2022-01-09] MEDS: Aspirin 81 mg Enteric Coated Tablet PO SCH (08:10)
== END 2022-01-09 12:40 | disposition home or self-care (01) | DRG 872 ==
LOC: MSONC 17:40
PROVIDERS: ADMIT Internal Medicine; ATTEND Internal Medicine
DX: A41.9 Sepsis, unspecified organism (principal); C25.9 Malignant neoplasm of pancreas, unspecified; N39.0 Urinary tract infection, site not specified; D70.1 Agranulocytosis secondary to cancer chemotherapy; Z20.822 Contact with and (suspected) exposure to COVID-19; E10.9 Type 1 diabetes mellitus without complications; E78.5 Hyperlipidemia, unspecified; I10 Essential (primary) hypertension; D64.9 Anemia, unspecified; I25.10 Atherosclerotic heart disease of native coronary artery without angina pectoris; T45.1X5A Adverse effect of antineoplastic and immunosuppressive drugs, initial encounter; G89.29 Other chronic pain; R50.81 Fever presenting with conditions classified elsewhere; Z79.899 Other long term (current) drug therapy; Z79.84 Long term (current) use of oral hypoglycemic drugs; Z86.718 Personal history of other venous thrombosis and embolism; Z79.01 Long term (current) use of anticoagulants; Z86.711 Personal history of pulmonary embolism
CPT/HCPCS: 36415; 36416; 71045; 71275; 74177; 80048; 80053; 80202; 81003; 81015; 83605; 83690; 83735; 83880; 84484; 85025; 85060; 87040; 87086; 87804; 93005; J0692; J1642; J1815; J2270; J2405; J2543; J3370; J3475; J3490; J7050; Q9967; U0002

== ENCOUNTER 2022-01-31 19:37 | Inpatient (IN) | payer MEDICARE, BC ==
[~2022-01-31 19:37] MED LIST: ISOVUE-370 76%-LOCM 1 ML ONE
[2022-01-31 20:16] LABS: Mean Corpuscular HGB CONC 32.7 g/dL (32.0-36.0); Mean Corpuscular Hemoglobin 31.4 pg (27.0-31.0); Mean Corpuscular Volume 96.3 fL (78.0-98.0); Mean Platelet Volume 6.8 fL (7.4-10.4); Platelet Count 245 thou/uL (130-400); RBC Distribution Width 14.6 % (11.5-14.5); Red Blood Cell (RBC) Count 2.55 mill/uL (4.20-5.40)
[2022-01-31 20:31] LABS: Band 5 % (5-11); Burr Cells SLIGHT = 2-5 cells (100X) (0-1/hpf); Eosinophils 3 % (0-10); Lymphocytes 16 % (21-51); MDiff Complete? YES; Monocytes 14 % (0-10); Neutrophil 55 % (42-75); Ovalocytes SLIGHT = 2-5 cells (100X) (0-1/hpf); Platelet Morphology Comment Appears Adequate; Polychromasia SLIGHT = 2-3 cells (100X) (0-2/hpf); Reactive Lymphocytes 6 % (0-10)
[2022-01-31 20:41] LABS: ALT (SGPT) 218 U/L (8-55); AST (SGOT) 354 U/L (5-34); Albumin 2.6 g/dL (3.4-4.8); Alkaline Phosphatase 611 U/L (40-110); Anion Gap 15 mmol/L (10-20); BUN (Urea Nitrogen) 20 mg/dL (9.8-20.1); Bilirubin, Total 1.7 mg/dL (0.2-1.2); Calc. Creatinine Clearance 0 mL/min (70-130); Calcium 8.8 mg/dL (7.8-10.44); Carbon Dioxide 19 mmol/L (23-31); Chloride 104 mmol/L (98-107); Globulin 2.4 g/dL (2.4-3.5); Glucose 126 mg/dL (83-110); Lipase 7 U/L (8-78); Potassium 3.9 mmol/L (3.5-5.1); Sodium 134 mmol/L (136-145)
[2022-01-31 21:23] LABS: Bilirubin 1+ (Negative); Blood, Urine Trace (Negative); Clarity Turbid (Clear); Glucose, Urine (Dipstick) Normal (Negative); Ketone, Urine Negative (Negative); Leukocyte 500 Leu/uL (Negative); Nitrite Negative (Negative); Protein, Urine (Dipstick) 20 mg/dL (Neg-Trace); Squamous Epithelial 0-3 HPF (0-3)
[2022-01-31 21:24] LABS: Bacteria/HPF 4+ HPF (None Seen); WBC/HPF Greater than 50 HPF (0-3)
[2022-01-31] MEDS ORDERED: Cefepime 2 GM VIAL ONE (22:13)
[2022-01-31 22:31] LABS: SARS-CoV-2 NAA Rapid Test Not Detected (NotDetected)
[2022-01-31] MEDS ORDERED: Vancomycin 1 GM/200 ML BAG ONE (22:58)
[2022-01-31 23:45] LABS: Troponin I 0.011 ng/mL (< 0.028)
[2022-01-31] MEDS ORDERED: Ondansetron PF 4 MG/2 ML Vial IVP PRN (23:53)
[2022-02-01] MEDS ORDERED: hydrOXYzine 10 MG TAB PO PRN ×2 (01:04→20:36)
[2022-02-01] MEDS ORDERED: Morphine 2 MG/ML VIAL SLOW IVP PRN ×2 (01:04→01:05)
[2022-02-01] MEDS ORDERED: Senokot S 8.6-50 MG TAB PO PRN (01:06)
[2022-02-01] MEDS ORDERED: HYDROcodone/Acetaminophen 5/325 mg Tablet PO PRN (01:20)
[2022-02-01 01:23] VITALS: BMI 23.2
[2022-02-01] MEDS ORDERED: Nitroglycerin 0.4 MG TAB (25 Tab Bottle) SL PRN (01:27)
[2022-02-01] MEDS ORDERED: Meclizine HCl 25 MG TAB PO PRN (01:27)
[2022-02-01] MEDS ORDERED: Prochlorperazine Maleate 5 MG TAB PO PRN (01:28)
[2022-02-01] MEDS ORDERED: Piperacillin/Tazobactam 3.375 GM in Sodium Chloride 0.9% 100 ML IVPB SCH (01:30)
[2022-02-01] MEDS ORDERED: Pantoprazole 40 MG VIAL IVP SCH (01:30)
[2022-02-01] MEDS ORDERED: hydrALAZINE 20 MG/ML VIAL SLOW IVP PRN (01:31)
[2022-02-01] MEDS ORDERED: Benzonatate 100 MG CAP PO PRN (01:34)
[2022-02-01] MEDS ORDERED: Guaifenesin DM 100-10/5 ML UDCUP PO PRN (01:34)
[2022-02-01] MEDS: Sodium Chloride 0.9% 1,000 ML IV SCH ×2 (01:57→17:07)
[2022-02-01 02:57] LABS: Troponin I 0.014 ng/mL (< 0.028)
[2022-02-01 04:49] LABS: Hemoglobin 7.1 g/dL (12.0-16.0); Mean Corpuscular Hemoglobin 31.8 pg (27.0-31.0); Mean Corpuscular Volume 96.3 fL (78.0-98.0); Mean Platelet Volume 7.1 fL (7.4-10.4); Platelet Count 218 thou/uL (130-400); RBC Distribution Width 14.5 % (11.5-14.5); Red Blood Cell (RBC) Count 2.25 mill/uL (4.20-5.40); White Blood Cell (WBC) Count 13.3 thou/uL (4.8-10.8)
[2022-02-01 05:08] LABS: Band 20 % (5-11); Eosinophils 4 % (0-10); Lymphocytes 8 % (21-51); MDiff Complete? YES; Monocytes 10 % (0-10); Neutrophil 57 % (42-75); Reactive Lymphocytes 1 % (0-10)
[2022-02-01] MEDS: Piperacillin/Tazobactam 3.375 GM in Sodium Chloride 0.9% 100 ML IVPB SCH ×3 (05:29→21:43)
[2022-02-01 05:32] LABS: ALT (SGPT) 174 U/L (8-55); AST (SGOT) 265 U/L (5-34); Albumin 2.2 g/dL (3.4-4.8); Alkaline Phosphatase 496 U/L (40-110); Anion Gap 10 mmol/L (10-20); BUN (Urea Nitrogen) 19 mg/dL (9.8-20.1); Bilirubin, Total 1.9 mg/dL (0.2-1.2); Calc. Creatinine Clearance 60 mL/min (70-130); Calcium 8.7 mg/dL (7.8-10.44); Carbon Dioxide 22 mmol/L (23-31); Chloride 107 mmol/L (98-107); Globulin 2.4 g/dL (2.4-3.5); Glucose 112 mg/dL (83-110); Potassium 3.8 mmol/L (3.5-5.1); Protein, Total 4.6 g/dL (5.8-8.1); Sodium 135 mmol/L (136-145)
[2022-02-01] MEDS: Pantoprazole 40 MG VIAL IVP SCH (09:35)
[2022-02-01] MEDS: Amlodipine 5 MG TAB PO SCH (09:35)
[2022-02-01] MEDS ORDERED: ISOVUE-370 76%-LOCM 1 ML ONE (13:50)
[2022-02-01] MEDS: Losartan 25 MG TAB PO SCH (21:43)
[2022-02-01] MEDS: Atorvastatin Calcium 40 MG TAB PO SCH (21:43)
[2022-02-02] MEDS: Sodium Chloride 0.9% 1,000 ML IV SCH ×2 (02:09→18:30)
[2022-02-02] MEDS: Piperacillin/Tazobactam 3.375 GM in Sodium Chloride 0.9% 100 ML IVPB SCH ×3 (06:13→22:32)
[2022-02-02 08:25] LABS: #Eosinphils 0.5 thou/uL (0.0-0.7); #Lymphocytes 1.9 thou/uL (1.20-3.40); #Monocytes 1.5 thou/uL (0.11-0.59); #Neutrophils 6.9 thou/uL (1.40-6.50); %Basophils 0.2 % (0.0-1.0); %Eosinophils 4.3 % (0.0-10.0); %Lymphocytes 17.9 % (21.0-51.0); %Monocytes 13.4 % (0.0-10.0); %Neutrophils 64.3 % (42.0-75.0); Hemoglobin 8.9 g/dL (12.0-16.0); Mean Corpuscular HGB CONC 31.9 g/dL (32.0-36.0); Mean Corpuscular Volume 94.1 fL (78.0-98.0); Mean Platelet Volume 6.7 fL (7.4-10.4); Platelet Count 309 thou/uL (130-400); RBC Distribution Width 15.8 % (11.5-14.5); Red Blood Cell (RBC) Count 2.96 mill/uL (4.20-5.40); White Blood Cell (WBC) Count 10.8 thou/uL (4.8-10.8)
[2022-02-02 08:47] LABS: ALT (SGPT) 151 U/L (8-55); AST (SGOT) 197 U/L (5-34); Albumin 2.2 g/dL (3.4-4.8); Alkaline Phosphatase 561 U/L (40-110); Bilirubin, Direct 1.4 mg/dL (0.1-0.3); Protein, Total 4.9 g/dL (5.8-8.1)
[2022-02-02] MEDS ORDERED: Indomethacin 50 MG SUPP ONE (11:05)
[2022-02-02] MEDS ORDERED: Iopamidol 30 ML ONE (11:08)
[2022-02-02] MEDS ORDERED: fentaNYL Citrate/PF 100 MCG/2 ML SYRINGE ONE (12:00)
[2022-02-02] MEDS: Pantoprazole 40 MG VIAL IVP SCH (14:37)
[2022-02-02] MEDS: Amlodipine 5 MG TAB PO SCH (14:38)
[2022-02-02] MEDS: Atorvastatin Calcium 40 MG TAB PO SCH (20:27)
[2022-02-02] MEDS: Losartan 25 MG TAB PO SCH (20:27)
[2022-02-03 04:28] LABS: Hemoglobin 10.7 g/dL (12.0-16.0); Mean Corpuscular HGB CONC 33.1 g/dL (32.0-36.0); Mean Corpuscular Hemoglobin 31.1 pg (27.0-31.0); Mean Corpuscular Volume 93.9 fL (78.0-98.0); Mean Platelet Volume 7.4 fL (7.4-10.4); Platelet Count 428 thou/uL (130-400); RBC Distribution Width 15.6 % (11.5-14.5); Red Blood Cell (RBC) Count 3.44 mill/uL (4.20-5.40); White Blood Cell (WBC) Count 10.8 thou/uL (4.8-10.8)
[2022-02-03 04:51] LABS: Band 17 % (5-11); Large Platelets SLIGHT; Lymphocytes 13 % (21-51); MDiff Complete? YES; Monocytes 1 % (0-10); Myelocyte 3 % (0-0); Neutrophil 66 % (42-75); Platelet Morphology Comment Appears Adequate; Polychromasia SLIGHT = 2-3 cells (100X) (0-2/hpf)
[2022-02-03] MEDS: Piperacillin/Tazobactam 3.375 GM in Sodium Chloride 0.9% 100 ML IVPB SCH ×2 (05:08→13:44)
[2022-02-03 05:46] LABS: ALT (SGPT) 121 U/L (8-55); AST (SGOT) 108 U/L (5-34); Albumin 2.4 g/dL (3.4-4.8); Alkaline Phosphatase 549 U/L (40-110); Bilirubin, Direct 0.7 mg/dL (0.1-0.3); Bilirubin, Total 1.1 mg/dL (0.2-1.2); Protein, Total 5.3 g/dL (5.8-8.1)
[2022-02-03] MEDS: Pantoprazole 40 MG VIAL IVP SCH (09:20)
[2022-02-03] MEDS: Amlodipine 5 MG TAB PO SCH (09:20)
[2022-02-03 15:51] VITALS: BP 107/60; TEMP 97.8
[2022-02-03] MEDS: Sodium Chloride 0.9% 1,000 ML IV SCH (18:13)
== END 2022-02-03 18:30 | disposition home or self-care (01) | DRG 919 ==
LOC: ERS 19:37 → 2NO 22:56
PROVIDERS: ADMIT Internal Medicine; ATTEND Internal Medicine
PROC: 30233N1 Transfusion of Nonautologous Red Blood Cells into Peripheral Vein, Percutaneous Approach (ICD-10-PCS; 2022-02-01)
PROC: 0F798DZ Dilation of Common Bile Duct with Intraluminal Device, Via Natural or Artificial Opening Endoscopic (ICD-10-PCS; principal; 2022-02-02)
PROC: 0FPB8DZ Removal of Intraluminal Device from Hepatobiliary Duct, Via Natural or Artificial Opening Endoscopic (ICD-10-PCS; 2022-02-02)
DX: T85.590A Other mechanical complication of bile duct prosthesis, initial encounter (principal); K83.1 Obstruction of bile duct; K83.09 Other cholangitis; C25.9 Malignant neoplasm of pancreas, unspecified; N39.0 Urinary tract infection, site not specified; Z66 Do not resuscitate; Z20.822 Contact with and (suspected) exposure to COVID-19; Y83.1 Surgical operation with implant of artificial internal device as the cause of abnormal reaction of the patient, or of later complication, without mention of misadventure at the time of the procedure; I25.10 Atherosclerotic heart disease of native coronary artery without angina pectoris; E78.00 Pure hypercholesterolemia, unspecified; E78.5 Hyperlipidemia, unspecified; K21.9 Gastro-esophageal reflux disease without esophagitis; E10.9 Type 1 diabetes mellitus without complications; Z96.662 Presence of left artificial ankle joint; Z96.652 Presence of left artificial knee joint; R74.8 Abnormal levels of other serum enzymes; M19.90 Unspecified osteoarthritis, unspecified site; D64.81 Anemia due to antineoplastic chemotherapy; T45.1X5A Adverse effect of antineoplastic and immunosuppressive drugs, initial encounter; Z95.1 Presence of aortocoronary bypass graft; Z90.710 Acquired absence of both cervix and uterus; Z79.899 Other long term (current) drug therapy; Z79.01 Long term (current) use of anticoagulants; Z79.82 Long term (current) use of aspirin; Z79.84 Long term (current) use of oral hypoglycemic drugs; Z90.49 Acquired absence of other specified parts of digestive tract; Z98.890 Other specified postprocedural states
CPT/HCPCS: 36415; 36430; 71045; 71275; 74177; 74330; 76705; 80053; 80076; 81003; 81015; 83605; 83690; 83880; 84484; 85025; 86850; 86900; 86901; 87040; 87077; 87086; 87186; 93005; C2617; C9113; J0692; J2543; J3370; J3490; J7050; P9016; Q9966; Q9967

== ENCOUNTER 2022-05-29 07:33 | Emergency (ER) | payer MEDICARE, BC ==
[2022-05-29] MEDS ORDERED: Ondansetron PF 4 MG/2 ML Vial ONE (08:14)
[2022-05-29 08:25] LABS: Hemoglobin 9.9 g/dL (12.0-16.0); Mean Corpuscular HGB CONC 31.6 g/dL (32.0-36.0); Mean Corpuscular Hemoglobin 32.4 pg (27.0-31.0); Mean Platelet Volume 7.3 fL (7.4-10.4); Platelet Count 155 thou/uL (130-400); RBC Distribution Width 18.3 % (11.5-14.5); Red Blood Cell (RBC) Count 3.05 mill/uL (4.20-5.40); White Blood Cell (WBC) Count 2.9 thou/uL (4.8-10.8)
[2022-05-29 08:45] LABS: ALT (SGPT) 10 U/L (8-55); AST (SGOT) 21 U/L (5-34); Albumin 2.4 g/dL (3.4-4.8); Alkaline Phosphatase 59 U/L (40-110); Anion Gap 11 mmol/L (10-20); BUN (Urea Nitrogen) 18 mg/dL (9.8-20.1); Bilirubin, Total 0.5 mg/dL (0.2-1.2); Calc. Creatinine Clearance 0 mL/min (70-130); Calcium 8.2 mg/dL (7.8-10.44); Carbon Dioxide 21 mmol/L (23-31); Chloride 107 mmol/L (98-107); Estimated GFR 70; Globulin 2.1 g/dL (2.4-3.5); Glucose 186 mg/dL (83-110); Lipase Less than 4 U/L (8-78); Potassium 3.2 mmol/L (3.5-5.1); Protein, Total 4.5 g/dL (5.8-8.1); Sodium 136 mmol/L (136-145)
[2022-05-29 08:47] LABS: Band 14 % (5-11); Eosinophils 2 % (0-10); Lymphocytes 30 % (21-51); MDiff Complete? YES; Monocytes 3 % (0-10); Neutrophil 51 % (42-75); Platelet Morphology Comment Appears Adequate; Polychromasia SLIGHT = 2-3 cells (100X) (0-2/hpf)
[2022-05-29 09:56] LABS: Bilirubin Negative (Negative); Blood, Urine Negative (Negative); Clarity Clear (Clear); Glucose, Urine (Dipstick) Normal (Negative); Ketone, Urine Negative (Negative); Leukocyte Negative Leu/uL (Negative); Nitrite Negative (Negative); Protein, Urine (Dipstick) 20 mg/dL (Neg-Trace); Specific Gravity, Urine 1.023 (1.002-1.036); Urobilinogen Normal mg/dL (Less than 2)
== END 2022-05-29 10:45 | disposition home or self-care (01) ==
LOC: ERS 07:33
DX: R11.0 Nausea (principal); M54.50 Low back pain, unspecified; Z85.07 Personal history of malignant neoplasm of pancreas; E10.9 Type 1 diabetes mellitus without complications; E78.00 Pure hypercholesterolemia, unspecified; Z79.899 Other long term (current) drug therapy; Z79.82 Long term (current) use of aspirin; Z79.01 Long term (current) use of anticoagulants; Z79.84 Long term (current) use of oral hypoglycemic drugs
CPT/HCPCS: 36415; 80053; 81003; 83690; 84484; 85025; 93005; 96374; J2405

== ENCOUNTER 2022-06-08 13:30 | Emergency (ER) | payer MEDICARE, BC ==
[2022-06-08 14:01] LABS: #Eosinphils 0.1 thou/uL (0.0-0.7); #Lymphocytes 0.9 thou/uL (1.20-3.40); #Monocytes 0.5 thou/uL (0.11-0.59); #Neutrophils 6.1 thou/uL (1.40-6.50); %Basophils 0.3 % (0.0-1.0); %Eosinophils 0.9 % (0.0-10.0); %Lymphocytes 11.6 % (21.0-51.0); %Neutrophils 81.2 % (42.0-75.0); Hemoglobin 11.2 g/dL (12.0-16.0); Mean Corpuscular HGB CONC 31.5 g/dL (32.0-36.0); Mean Corpuscular Hemoglobin 32.5 pg (27.0-31.0); Platelet Count 219 thou/uL (130-400); Red Blood Cell (RBC) Count 3.46 mill/uL (4.20-5.40); White Blood Cell (WBC) Count 7.5 thou/uL (4.8-10.8)
[2022-06-08 14:22] LABS: ALT (SGPT) 18 U/L (8-55); AST (SGOT) 37 U/L (5-34); Albumin 2.7 g/dL (3.4-4.8); Alkaline Phosphatase 121 U/L (40-110); Anion Gap 9 mmol/L (10-20); BUN (Urea Nitrogen) 17 mg/dL (9.8-20.1); Bilirubin, Total 0.4 mg/dL (0.2-1.2); Calc. Creatinine Clearance 0 mL/min (70-130); Calcium 8.7 mg/dL (7.8-10.44); Carbon Dioxide 29 mmol/L (23-31); Chloride 102 mmol/L (98-107); Estimated GFR 66; Globulin 2.5 g/dL (2.4-3.5); Glucose 128 mg/dL (83-110); Lipase Less than 4 U/L (8-78); Potassium 3.6 mmol/L (3.5-5.1); Protein, Total 5.2 g/dL (5.8-8.1); Sodium 136 mmol/L (136-145)
== END 2022-06-08 15:20 | disposition left against medical advice (07) ==
LOC: ERS 13:30
DX: Z53.21 Procedure and treatment not carried out due to patient leaving prior to being seen by health care provider (principal)
CPT/HCPCS: 36415; 80053; 83690; 85025

== ENCOUNTER 2022-06-09 00:16 | Observation (INO) | payer MEDICARE, BC ==
[2022-06-09 01:03] VITALS: BMI 24.2
[2022-06-09] MEDS ORDERED: HumaLOG 300 UNITS/3 ML VIAL SC PRN ×2 (02:30)
[2022-06-09] MEDS ORDERED: Dextrose 50% Abboject 50 ML SYRINGE SLOW IVP PRN (02:30)
[2022-06-09] MEDS ORDERED: Dextrose 5% in Water 1,000 ML IV PRN (02:30)
[2022-06-09] MEDS ORDERED: Ondansetron ODT 4 MG TAB PO PRN (04:01)
[2022-06-09] MEDS ORDERED: Ondansetron PF 4 MG/2 ML Vial IVP PRN (04:01)
[2022-06-09] MEDS ORDERED: Acetaminophen 325 MG Suppository PR PRN (04:01)
[2022-06-09] MEDS ORDERED: Acetaminophen 325 MG TAB PO PRN (04:01)
[2022-06-09] MEDS ORDERED: Promethazine 25 MG TAB PO PRN (04:42)
[2022-06-09] MEDS ORDERED: Mirtazapine 30 MG TAB PO PRN (04:42)
[2022-06-09] MEDS ORDERED: Sodium Chloride 0.9% 1,000 ML IV SCH (08:00)
[2022-06-09] MEDS ORDERED: Losartan 25 MG TAB PO SCH (09:00)
[2022-06-09] MEDS ORDERED: Apixaban 5 MG TAB PO SCH ×3 (09:00→21:00)
[2022-06-09] MEDS ORDERED: Piperacillin/Tazobactam 3.375 GM in Sodium Chloride 0.9% 100 ML IVPB SCH (09:00)
[2022-06-09 11:50] VITALS: BP 102/62; TEMP 97.3
[2022-06-09] MEDS ORDERED: Atorvastatin Calcium 40 MG TAB PO SCH (21:00)
== END 2022-06-09 15:58 | disposition home or self-care (01) ==
LOC: INTOOBSV 00:41 → MSONC 00:41
PROVIDERS: ADMIT Internal Medicine; ATTEND Internal Medicine
DX: R10.13 Epigastric pain (principal); R11.0 Nausea; C25.9 Malignant neoplasm of pancreas, unspecified; D63.0 Anemia in neoplastic disease; E10.9 Type 1 diabetes mellitus without complications; I25.10 Atherosclerotic heart disease of native coronary artery without angina pectoris; I10 Essential (primary) hypertension; E78.5 Hyperlipidemia, unspecified; Z79.01 Long term (current) use of anticoagulants; Z79.82 Long term (current) use of aspirin; Z79.84 Long term (current) use of oral hypoglycemic drugs; Z79.899 Other long term (current) drug therapy; Z95.1 Presence of aortocoronary bypass graft; Z20.822 Contact with and (suspected) exposure to COVID-19
CPT/HCPCS: 36416; 96374; G0378; J2543; J3490; J7050

== ENCOUNTER 2022-10-20 12:46 | Outpatient (CLI) | payer MEDICARE, BC ==
[~2022-10-20 12:46] MED LIST changes: -ISOVUE-370 76%-LOCM 1 ML ONE; +Iopamidol 370 76% 100 ML VIAL ONE
== END 2022-10-20 12:47 | disposition home or self-care (01) ==
LOC: CT 12:46
PROVIDERS: ATTEND Surgery Surgical Oncology
DX: C25.9 Malignant neoplasm of pancreas, unspecified (principal); R60.0 Localized edema; Z98.890 Other specified postprocedural states
CPT/HCPCS: 71260; 74177; Q9967

== ENCOUNTER 2024-04-04 11:00 | Outpatient (CLI) | payer MEDICARE | END 2024-04-04 11:01 | disposition home or self-care (01) | LOC: PET 11:00 | PROVIDERS: ATTEND Internal Medicine Hematology & Oncology | DX: C25.0 Malignant neoplasm of head of pancreas (principal); R97.8 Other abnormal tumor markers; R91.8 Other nonspecific abnormal finding of lung field; J92.9 Pleural plaque without asbestos | CPT/HCPCS: 78815; A9552 ==

== ENCOUNTER 2025-06-14 15:45 | Outpatient (CLI) | payer MEDICARE | END 2025-06-14 15:46 | disposition home or self-care (01) | LOC: SCSRAD 15:45 | PROVIDERS: ATTEND Family Medicine | DX: R06.02 Shortness of breath (principal) | CPT/HCPCS: 71046; 87040 ==